=== PATIENT | female | born 1955 | race American Indian/Alaskan Native ===

== ENCOUNTER 2017-10-03 13:34 | Emergency (ER) | payer MEDICARE ==
[2017-10-03 14:50] LABS: BUN/Creatinine Ratio 16; Basophils # (Auto) 0.1 K/mm3 (0.0-0.1); Basophils % (Auto) 0.7 % (0.0-1.8); Blood Urea Nitrogen 18 mg/dL (7-17); Calcium 9.1 mg/dL (8.4-10.2); Eosinophils # (Auto) 0.2 K/mm3 (0.0-0.4); Eosinophils % (Auto) 2.5 % (0.0-4.3); Hematocrit 42.4 % (30.3-42.9); Hemoglobin 13.5 gm/dl (10.1-14.3); Hemolysis Index 7; Lymphocytes # (Auto) 3.7 K/mm3 (1.2-5.4); Lymphocytes % (Auto) 39.5 % (13.4-35.0); Mean Corpuscular HGB Conc 32 % (30-34); Mean Corpuscular Hemoglobin 30 pg (28-32); Mean Corpuscular Volume 94 fl (79-97); Monocytes # (Auto) 0.6 K/mm3 (0.0-0.8); Platelet Count 383 K/mm3 (140-440); Red Blood Count 4.52 M/mm3 (3.65-5.03); Red Cell Distribution Width 15.6 % (13.2-15.2)
[2017-10-03] MEDS ORDERED: TORADOL IM ONE (16:13)
--- NOTE | 2017-10-03 16:22 | Emergency Department Report ---
HPI - General Chief Complaint: Psych Time Seen by Provider: 10/03/17 15:57 - HPI HPI: 62-year-old female presents to the emergency department with complaint of multiple complaints. Patient says that she had a relapse of drugs and alcohol on Monday, 2 days ago, that included heroin, cocaine and alcohol. Since then, the patient says that she has been having some withdrawals. She mostly complains of some irritability. However also the patient says that she is sad regarding her relapse and this has brought on some suicidal ideations without any specific plan. She also has a history of bipolar disorder and schizophrenia and says that she's been having some nonspecific hallucinations last night as well. She tried some Klonopin for her withdrawals and says this is a medication that she has been prescribed by physician in [place]. Patient also complains of bilateral knee pain over the past 2 weeks with a history of osteoarthritis. She is requesting Toradol and prednisone. She does not have an orthopedist. ED Past Medical Hx - Past Medical History Hx Hypertension: Yes Hx Diabetes: Yes Hx Psychiatric Treatment: Yes (bipolar,schizophrenic,drug abuse,alcohol abuse) - Surgical History Additional Surgical History: R MASTECTOMY, HYST, R ANKLE, TONSILLECTOMY - Social History Smoking Status: Current Every Day Smoker Substance Use Type: Alcohol, Cocaine, Heroin, Other - Medications Home Medications: Home Medications Medication Instructions Recorded Confirmed Last Taken Type Ipratropium (Nf) [Atrovent HFA 2 puff IH Q6HR PRN 05/09/13 10/03/17 Unknown History 17MCG/PUFF] ALPRAZolam [Xanax TAB] 2 mg PO TID PRN 07/06/15 10/03/17 Unknown History Furosemide [Lasix TAB] 40 mg PO QDAY 07/06/15 10/03/17 Unknown History Ibuprofen [Motrin] 800 mg PO Q8HR PRN 07/06/15 10/03/17 Unknown History Pantoprazole [Protonix INJ] 40 mg PO QDAY 07/06/15 10/03/17 Unknown History Potassium Chloride 20 meq PO DAILY 07/06/15 10/03/17 Unknown History Simvastatin [Zocor TAB] 40 mg PO QHS 07/06/15 10/03/17 Unknown History Metoprolol [Lopressor TAB] 100 mg PO DAILY 07/07/15 10/03/17 Unknown History glipiZIDE 07/07/15 Unknown History ED Review of Systems ROS: Stated complaint: WITHDRAWS DRUGS Other details as noted in HPI Comment: All other systems reviewed and negative Constitutional: denies: chills, fever Eyes: denies: eye pain, eye discharge, vision change ENT: denies: ear pain, throat pain Respiratory: denies: cough, shortness of breath, wheezing Cardiovascular: denies: chest pain, palpitations Gastrointestinal: denies: abdominal pain, nausea, diarrhea Genitourinary: denies: urgency, dysuria, discharge Musculoskeletal: arthralgia. denies: joint swelling Skin: denies: rash, lesions Neurological: denies: headache, weakness, paresthesias Psychiatric: depression, auditory hallucinations, visual hallucinations, suicidal thoughts Physical Exam - Physical Exam Vital Signs: Vital Signs 10/03/17 10/03/17 13:42 15:30 Temperature 98 F Pulse Rate 65 89 Respiratory 18 16 Rate Blood Pressure 112/65 Blood Pressure 109/54 [Left] O2 Sat by Pulse 97 95 Oximetry Physical Exam: GENERAL: The patient is well-developed well-nourished. HENT: Normocephalic. Atraumatic. Patient has moist mucous membranes. EYES: Extraocular motions are intact. Pupils equal reactive to light bilaterally. NECK: Supple. Trachea is midline. CHEST/LUNGS: Clear to auscultation. There is no respiratory distress noted. HEART/CARDIOVASCULAR: Regular. There is no tachycardia. There is no murmur. ABDOMEN: Abdomen is soft, nontender. Patient has normal bowel sounds. Obese habitus. SKIN: Skin is warm and dry. NEURO: The patient is awake, alert, and oriented. The patient is cooperative. The patient has no focal neurologic deficits. The patient has normal speech and gait. MUSCULOSKELETAL: There is some tenderness in the patient to the bilateral knees but no obvious deformity.. There is no limitation range of motion. ED Course Vital Signs 10/03/17 10/03/17 13:42 15:30 Temperature 98 F Pulse Rate 65 89 Respiratory 18 16 Rate Blood Pressure 112/65 Blood Pressure 109/54 [Left] O2 Sat by Pulse 97 95 Oximetry ED Medical Decision Making - Lab Data Result diagrams: 10/03/17 14:15 10/03/17 14:15 - EKG Data -: EKG Interpreted by Me EKG shows normal: sinus rhythm, axis, intervals, QRS complexes (LVH, anterior Q waves), ST-T waves Rate: normal - EKG Data When compared to previous EKG there are: previous EKG unavailable Interpretation: other (sinus rhythm, LVH, anterior Q waves) - Radiology Data Radiology results: image reviewed interpreted by me: X-ray of the bilateral knees so some degenerative changes consistent with osteoarthritis. No fracture or dislocation. - Medical Decision Making Patient presents with some depression, suicidal ideations. She has a history of polysubstance abuse that she says she last used 2 or 3 days ago. UDS is currently positive for cocaine and benzodiazepines. Blood alcohol levels negative. The labs are mostly unremarkable. Vital signs stable throughout her ED course. X-ray of the knees shows some concerns for osteoarthritis but the patient already knows that she has a history of this. Otherwise the patient appears medically cleared and was made a 1013 secondary to the suicidal ideations. - Differential Diagnosis depression, bipolar disorder, schizophrenia, osteoarthritis, joint effusion Critical Care Time: No Critical care attestation.: If time is entered above; I have spent that time in minutes in the direct care of this critically ill patient, excluding procedure time. ED Disposition Clinical Impression: Suicidal ideations Depression Qualifiers: Depression Type: unspecified Qualified Code(s): F32.9 - Major depressive disorder, single episode, unspecified Disposition: DC/TX-65 PSY HOSP/PSY UNIT Is pt being admited?: No Condition: Stable Referrals: PRIMARY CARE [Primary Care Provider] - 3-5 Days Time of Disposition: 21:25
[2017-10-03 17:04] LABS: Bacteria,Urine 1+ /HPF (Negative); Bilirubin,Urine NEG (Negative); Blood,Urine NEG (Negative); Color,Urine Yellow (Yellow); Mucus,Urine FEW /HPF; Protein,Urine <15 mg/dL mg/dL (Negative); Urobilinogen,Urine < 2.0 mg/dL (<2.0)
[2017-10-03] MEDS ORDERED: K-DUR PO ONE (17:12)
[2017-10-03 17:13] LABS: Amphetamine Screen,Urine PRESUMPTIVE NEGATIVE; Cannabinoid Screen,Urine PRESUMPTIVE NEGATIVE; Methadone Screen,Urine PRESUMPTIVE NEGATIVE; Opiate Screen,Urine PRESUMPTIVE NEGATIVE
[2017-10-03 17:26] LABS: Benzodiazepines Screen,Urine PRESUMPTIVE POSITIVE; Cocaine Screen,Urine PRESUMPTIVE POSITIVE
--- NOTE | 2017-10-03 21:13 | XRay Report ---
FINAL REPORT PROCEDURE: XR KNEE BILAT 3V TECHNIQUE: Bilateral knee radiographs, AP, cross-table lateral and oblique views. HISTORY: knee pain COMPARISON: No prior studies are available for comparison. FINDINGS: There is [id number] degree narrowing of the medial tibiofemoral and patellofemoral compartments of bilateral knees right more than left. Marginal osteophyte formation is noted involving bilateral knee joints. An acute fracture is not identified. There is no obvious evidence of a joint effusion. IMPRESSION: Osteoarthritis bilateral knee joints
[2017-10-04] MEDS ORDERED: TYLENOL PO PRN (03:11)
[2017-10-04] MEDS ORDERED: NON-FORMULARY (Ipratropium (Nf) 2 PUFF) IH PRN (16:49)
[2017-10-04] MEDS ORDERED: LOPRESSOR PO SCH (17:00)
[2017-10-04] MEDS ORDERED: NON-FORMULARY (Glipizide 5 MG) PO SCH (17:00)
[2017-10-04] MEDS ORDERED: K-DUR PO SCH (17:00)
[2017-10-04] MEDS ORDERED: NON-FORMULARY (Potassium Chloride [Potassium Chloride] 20 MEQ) PO SCH (17:00)
[2017-10-04] MEDS ORDERED: LASIX PO SCH (17:00)
[2017-10-04] MEDS ORDERED: GLUCOTROL PO SCH (17:00)
[2017-10-04 17:24] VITALS: BP 162/89
[2017-10-04] MEDS ORDERED: PROVENTIL IH PRN (17:28)
[2017-10-04] MEDS ORDERED: LASIX ONE (18:02)
[2017-10-04] MEDS ORDERED: HABITROL TD ONE (19:00)
[2017-10-04] MEDS ORDERED: PRAVACHOL PO SCH (22:00)
[2017-10-04] MEDS ORDERED: NON-FORMULARY (Simvastatin 40 MG) PO SCH (22:00)
== END 2017-10-04 20:54 ==
LOC: EEVIPCON 13:34 → ED 13:34
DX: F31.9 Bipolar disorder, unspecified (principal); F20.9 Schizophrenia, unspecified; M25.562 Pain in left knee; M25.561 Pain in right knee; I10 Essential (primary) hypertension; E11.9 Type 2 diabetes mellitus without complications; F17.200 Nicotine dependence, unspecified, uncomplicated; F14.10 Cocaine abuse, uncomplicated; F11.10 Opioid abuse, uncomplicated
CPT/HCPCS: 36415; 73562; 80048; 80307; 81001; 82962; 85025; 93005; 93010; 96372; 99285; G0480; J1885; 80320; A9270-GY

== ENCOUNTER 2018-07-27 08:28 | Observation (INO) | payer MEDICARE ==
[2018-07-27] MEDS ORDERED: ASPIRIN PO ONE (09:04)
--- NOTE | 2018-07-27 09:37 | XRay Report ---
PORTABLE CHEST INDICATION: Chest pain. COMPARISON: None similar. FINDINGS: Portable, frontal chest radiograph demonstrates mild exaggerated cardiomediastinal silhouette/possible cardiomegaly and prominent bronchovascular markings, more so centrally. Slight peribronchial thickening. No dense focal consolidation, pleural effusions or CHF. EKG leads. Few bony degenerative changes. CONCLUSION: Slight cardiomegaly, perihilar congestion and minimal peribronchial thickening possible, as described. Please correlate. Thank you for the opportunity to participate in this patient's care.
[2018-07-27 10:27] LABS: Basophils # (Auto) 0.1 K/mm3 (0.0-0.1); Eosinophils # (Auto) 0.2 K/mm3 (0.0-0.4); Eosinophils % (Auto) 2.1 % (0.0-4.3); Hematocrit 36.7 % (30.3-42.9); Hemoglobin 11.8 gm/dl (10.1-14.3); Lymphocytes # (Auto) 1.7 K/mm3 (1.2-5.4); Lymphocytes % (Auto) 22.7 % (13.4-35.0); Mean Corpuscular HGB Conc 32 % (30-34); Mean Corpuscular Volume 90 fl (79-97); Monocytes # (Auto) 0.5 K/mm3 (0.0-0.8); Monocytes % (Auto) 6.7 % (0.0-7.3); Platelet Count 435 K/mm3 (140-440)
[2018-07-27 10:50] LABS: BUN/Creatinine Ratio 5; Blood Urea Nitrogen 4 mg/dL (7-17); Calcium 8.6 mg/dL (8.4-10.2); Hemolysis Index 4
--- NOTE | 2018-07-27 11:01 | Emergency Department Report ---
HPI - General Chief Complaint: Chest Pain Time Seen by Provider: 07/27/18 10:44 - HPI HPI: Room 3 Patient is 63-year-old female presented with a chief complaint of chest pain and bilateral lower extremity edema. The patient states 2-3 days ago she developed swelling in both lower extremities. Patient states morning she developed substernal chest pain that was sharp and intermittent in nature. The patient admits to associated shortness of breath, diaphoresis and nausea without vomiting or chest pain. Patient states she has been compliant with her Lasix. Of note the patient states she relapsed on cocaine 2 days ago. Location: Chest, bilateral lower extremities Duration: [See above] Quality: Sharp Severity: [See above] Modifying factors: [see above] Context: [see above] Mode of transportation: [not driving] ED Past Medical Hx - Past Medical History Previous Medical History?: Yes Hx Hypertension: Yes Hx Congestive Heart Failure: Yes Hx Diabetes: Yes Hx Pulmonary Embolism: Yes Hx of Cancer: Yes (right mastectomy) Hx Psychiatric Treatment: Yes (bipolar,schizophrenic,drug abuse,alcohol abuse) - Surgical History Past Surgical History?: Yes Additional Surgical History: R MASTECTOMY, HYST, R ANKLE, TONSILLECTOMY, L HAND - Family History Family history: no significant - Social History Smoking Status: Current Every Day Smoker (1/7 pack per day) Substance Use Type: Cocaine - Medications Home Medications: Home Medications Medication Instructions Recorded Confirmed Last Taken Type Ipratropium (Nf) [Atrovent HFA 2 puff IH Q6HR PRN 05/09/13 10/03/17 Unknown History 17MCG/PUFF] ALPRAZolam [Xanax TAB] 2 mg PO TID PRN 07/06/15 10/03/17 Unknown History Furosemide [Lasix TAB] 40 mg PO QDAY 07/06/15 10/03/17 Unknown History Ibuprofen [Motrin] 800 mg PO Q8HR PRN 07/06/15 10/03/17 Unknown History Pantoprazole [Protonix INJ] 40 mg PO QDAY 07/06/15 10/03/17 Unknown History Potassium Chloride 20 meq PO DAILY 07/06/15 10/03/17 Unknown History Simvastatin [Zocor TAB] 40 mg PO QHS 07/06/15 10/03/17 Unknown History Metoprolol [Lopressor TAB] 100 mg PO DAILY 07/07/15 10/03/17 Unknown History glipiZIDE 5 mg PO DAILY 07/07/15 10/03/17 Unknown History ED Review of Systems ROS: Stated complaint: CHEST PAIN Other details as noted in HPI Constitutional: diaphoresis Eyes: denies: eye pain ENT: denies: throat pain Respiratory: shortness of breath Cardiovascular: chest pain Endocrine: no symptoms reported Gastrointestinal: nausea. denies: vomiting Genitourinary: denies: dysuria Musculoskeletal: denies: back pain Neurological: denies: headache Physical Exam - Physical Exam Vital Signs: Vital Signs 07/27/18 07/27/18 08:58 09:04 Temperature 97.9 F Pulse Rate 105 H Respiratory 24 Rate Blood Pressure 144/84 O2 Sat by Pulse 96 96 Oximetry Physical Exam: GENERAL: The patient is well-developed well-nourished female lying on stretcher sleeping not appearing to be in acute distress. [] HEENT: Normocephalic. Atraumatic. Extraocular motions are intact. Patient has moist mucous membranes. NECK: Supple. Trachea midline CHEST/LUNGS: Clear to auscultation. There is no respiratory distress noted. HEART/CARDIOVASCULAR: Regular. There is no tachycardia. There is no gallop rub or murmur. ABDOMEN: Abdomen is soft, nontender. Patient has normal bowel sounds. There is no abdominal distention. SKIN: There is no rash. There is 2+ bilateral lower extremity pitting edema. There is no diaphoresis. NEURO: The patient is awake, alert, and oriented. The patient is cooperative. The patient has normal speech MUSCULOSKELETAL: There is no evidence of acute injury. ED Course Vital Signs 07/27/18 07/27/18 08:58 09:04 Temperature 97.9 F Pulse Rate 105 H Respiratory 24 Rate Blood Pressure 144/84 O2 Sat by Pulse 96 96 Oximetry ED Medical Decision Making - Lab Data Result diagrams: 07/27/18 10:12 07/27/18 10:12 Laboratory Tests 07/27/18 07/27/18 07/27/18 09:19 10:12 10:12 WBC 7.3 RBC 4.10 Hgb 11.8 Hct 36.7 MCV 90 MCH 29 MCHC 32 RDW 16.0 H Plt Count 435 Lymph % (Auto) 22.7 Maries % (Auto) 6.7 Eos % (Auto) 2.1 Baso % (Auto) 1.0 Lymph # 1.7 Maries # 0.5 Eos # 0.2 Baso # 0.1 Seg Neutrophils % 67.5 Seg Neutrophils # 4.9 Sodium 143 Potassium 3.7 Chloride 105.4 Carbon Dioxide 23 Anion Gap 18 BUN 4 L Creatinine 0.8 Estimated GFR > 60 BUN/Creatinine Ratio 5 Glucose 136 H POC Glucose 123 H Calcium 8.6 Troponin T < 0.010 - EKG Data -: EKG Interpreted by Me EKG shows normal: sinus rhythm Rate: normal - EKG Data When compared to previous EKG there are: previous EKG unavailable Interpretation: other (PVC. No ischemic changes seen) - Radiology Data Radiology results: report reviewed (chest x-ray), image reviewed (chest x-ray) interpreted by me: Chest x-ray-no focal infiltrate, no pneumothorax. Cardiomegaly - Differential Diagnosis ACS, Prinzmetal, pericarditis, GERD, CHF exacerbation Critical care attestation.: If time is entered above; I have spent that time in minutes in the direct care of this critically ill patient, excluding procedure time. ED Disposition Clinical Impression: Chest pain, CHF exacerbation Disposition: -09 OP ADMIT IP TO THIS HOSP Is pt being admited?: Yes Does the pt Need Aspirin: Yes Condition: Fair Instructions: Chest Pain (ED) Referrals: ZARA GERONIMO MD [Primary Care Provider] - 3-5 Days Time of Disposition: 11:03 (hospitalist paged (Dr Geronimo))
[2018-07-27] MEDS ORDERED: NITRO-BID 2% TP ONE ×2 (11:05→12:54)
[2018-07-27] MEDS ORDERED: LASIX IV ONE (11:05)
[2018-07-27] MEDS ORDERED: LASIX ONE (12:54)
[2018-07-27] MEDS ORDERED: ZOFRAN IV ONE (13:07)
[2018-07-27] MEDS ORDERED: SUBLIMAZE IV ONE (13:07)
[2018-07-27] MEDS ORDERED: ZOFRAN ONE (13:15)
[2018-07-27] MEDS: PROTONIX PO SCH (17:53)
[2018-07-27] MEDS: PERCOCET 5/325 PO PRN (17:53)
[2018-07-27] MEDS ORDERED: ZOFRAN IV PRN ×2 (19:28→22:22)
[2018-07-27] MEDS ORDERED: PROVENTIL IH PRN (22:20)
[2018-07-27] MEDS ORDERED: AMBIEN PO PRN (22:20)
[2018-07-27] MEDS ORDERED: PHENERGAN PO PRN (22:20)
[2018-07-27] MEDS ORDERED: SODIUM CHLORIDE FLUSH SYRINGE 10 ML IV PRN (22:22)
[2018-07-27] MEDS ORDERED: MORPHINE IV PRN (22:22)
[2018-07-27] MEDS ORDERED: TYLENOL PO PRN (22:22)
[2018-07-27] MEDS ORDERED: IBUPROFEN PO PRN (22:22)
--- NOTE | 2018-07-27 22:24 | Event Note ---
Date: 07/27/18 See dictated H/p in reports Chest pain -r/o CO HTN HLD PN Asthma Depression Hypothyroidism Bipoar disorder Coacaine abuse
[2018-07-27] MEDS: FLEXERIL PO SCH (23:13)
[2018-07-27] MEDS: NEURONTIN PO SCH ×2 (23:13→23:16)
[2018-07-28] MEDS: PERCOCET 5/325 PO PRN ×3 (03:27→18:17)
--- NOTE | 2018-07-28 04:15 | History and Physical Report ---
CHIEF COMPLAINT: Left-sided chest pain for 3 days. HISTORY OF PRESENT ILLNESS: A 63-year-old -[place] female with multiple medical problems including hypertension, hyperlipidemia, peripheral neuropathy, asthma, depression, hypothyroidism, bipolar disorder, and cocaine dependence, comes in for left-sided chest pain for 2 days, intermittent in nature. No diaphoresis. No palpitations. No shortness of breath. The patient also has severe swelling of both the lower extremities. No orthopnea. No exacerbating or precipitating factors. No radiation of the chest pain. Chest pain is dull and about 7 on a scale of 1-10, intermittent in nature. PAST MEDICAL HISTORY: Significant for hypertension, congestive heart failure, diabetes, pulmonary embolism, right mastectomy, bipolar disorder, schizophrenia, cocaine use and alcohol use. PAST SURGICAL HISTORY: Right mastectomy, right ankle surgery, tonsillectomy, left hand surgery, and hysterectomy. FAMILY HISTORY: Hypertension. SOCIAL HISTORY: Smokes over half a pack a day. Cocaine use intermittent basis. FAMILY HISTORY: Hypertension. CURRENT MEDICATIONS: On the chart. REVIEW OF SYSTEMS: Significant for left-sided chest pain with no radiation. Also, some occasional wheezing present. Review of systems is otherwise negative. PHYSICAL EXAMINATION: GENERAL: Elderly female, cooperative during examination, obese. VITAL SIGNS: Blood pressure is 153/72, temperature is 97.9, pulse is 109, respirations are 18. HEENT: Unremarkable. Pupils are equal and reactive. NECK: Supple, no lymphadenopathy, no thyromegaly. LUNGS: Clear to auscultation and percussion. Good air entry. CARDIOVASCULAR: S1, S2, heard. No gallop, no murmur, no rub. Apical impulse in left fifth intercostal space and midclavicular line. ABDOMEN: Soft and benign. No hepatosplenomegaly. No guarding, no rigidity. Hernial orifices are normal. EXTREMITIES: Bilateral 3+ pedal edema present. CENTRAL NERVOUS SYSTEM: Alert and oriented x 4, nonfocal exam. LABORATORY DATA: Significant for white count of 7300, H and H is 11.8 and 36.7, platelet count is 435,000. Electrolytes are normal. BUN and creatinine is 4 and 0.8, glucose is 123, and A1c is 7.1. Calcium is 8.6. EKG normal sinus rhythm, no acute ST-T wave changes. Chest x-ray, slight cardiomegaly with perihilar congestion and minimal peribronchial thickening. Troponins are negative. ASSESSMENT AND PLAN: 1. Chest pain, rule out myocardial infarction, chest pain protocol. Cocaine may have precipitated. The patient counseled about cocaine use. The patient to get Lexiscan and serial troponins. 2. Bilateral lower extremity edema. Lasix ordered. Also, bilateral venous duplex scan to be done to rule out deep venous thrombosis. 3. Hypertension. Continue antihypertensives. 4. Hypothyroidism. Continue Synthroid. Check TSH. 5. Hyperlipidemia. Continue statins. 6. Peripheral neuropathy. Continue gabapentin. 7. Asthma. Continue Symbicort. 8. Depression. Continue antidepressants. 9. Cocaine use. The patient counseled. 10. Deep venous thrombosis prophylaxis. Lovenox 30 mg subcutaneous daily. 11. Gastrointestinal prophylaxis. JOB# [id number] VSM/NTS
[2018-07-28] MEDS: K-DUR PO SCH ×2 (04:51→11:00)
[2018-07-28] MEDS ORDERED: SYNTHROID PO SCH (06:00)
[2018-07-28 06:04] LABS: Basophils % (Auto) 0.6 % (0.0-1.8); Eosinophils # (Auto) 0.2 K/mm3 (0.0-0.4); Eosinophils % (Auto) 3.6 % (0.0-4.3); Hematocrit 36.5 % (30.3-42.9); Hemoglobin 11.6 gm/dl (10.1-14.3); Lymphocytes # (Auto) 2.2 K/mm3 (1.2-5.4); Lymphocytes % (Auto) 33.8 % (13.4-35.0); Mean Corpuscular HGB Conc 32 % (30-34); Mean Corpuscular Volume 89 fl (79-97); Monocytes # (Auto) 0.6 K/mm3 (0.0-0.8); Monocytes % (Auto) 8.8 % (0.0-7.3); Platelet Count 400 K/mm3 (140-440); Red Blood Count 4.09 M/mm3 (3.65-5.03); Red Cell Distribution Width 15.7 % (13.2-15.2)
[2018-07-28] MEDS: LASIX IV SCH ×2 (06:07→18:07)
[2018-07-28 06:37] LABS: Alanine Aminotransferase 7 units/L (7-56); Albumin 3.1 g/dL (3.9-5); BUN/Creatinine Ratio 4; Blood Urea Nitrogen 4 mg/dL (7-17); Calcium 9.1 mg/dL (8.4-10.2); Hemolysis Index 10
[2018-07-28] MEDS: HumaLOG SUB-Q SCH ×3 (08:21→17:35)
[2018-07-28] MEDS ORDERED: LEXISCAN IV ONE (09:00)
[2018-07-28] MEDS ORDERED: LOPRESSOR PO SCH (10:00)
[2018-07-28] MEDS ORDERED: NON-FORMULARY (Duloxetine Hcl [Cymbalta] 60 MG) PO SCH (10:00)
[2018-07-28] MEDS ORDERED: CYMBALTA PO SCH (10:00)
[2018-07-28] MEDS ORDERED: SODIUM CHLORIDE FLUSH SYRINGE 10 ML IV SCH (10:00)
[2018-07-28] MEDS ORDERED: PEPCID PO SCH (10:00)
[2018-07-28] MEDS ORDERED: XARELTO PO SCH (10:00)
[2018-07-28] MEDS: FLEXERIL PO SCH (10:58)
[2018-07-28] MEDS: PROTONIX PO SCH (10:59)
--- NOTE | 2018-07-28 15:09 | Vascular Lab Report ---
PROCEDURE: VL VENOUS DUPLEX LE BILAT TECHNIQUE: Duplex Doppler sonography of the BILATERAL lower extremities. Gonzalez scale imaging with and without compression, spectral waveform analysis with and without augmentation, and color flow Dopple r were employed. HISTORY: Lower extremity swelling COMPARISONS: None FINDINGS: RIGHT lower EXTREMITY: Deep Venous Thrombus: None Superficial Venous Thrombus: None Venous valvular incompetence: None Soft tissue abnormality: Mildly complex 3 x 1.5 cm fluid collection in the popliteal fossa with inte rnal echogenicities. LEFT lower EXTREMITY: Deep Venous Thrombus: None Superficial Venous Thrombus: None Venous valvular incompetence: None Soft tissue abnormality: None IMPRESSION: No evidence of deep venous thrombosis. Mildly complex right John's cyst. This document is electronically signed by Court Fu MD., Jul 28 2018 03:07:29 PM ET
--- NOTE | 2018-07-28 15:48 | Discharge Summary ---
Providers - Providers Date of Admission: 07/27/18 11:06 Date of discharge: 07/28/18 Attending physician: BANDAR CUMMINGS Primary care physician: ZARA GERONIMO Hospitalization Condition: Fair Hospital course: Patient is 63 yo presented with chest pain. She was seen and evaluated in ED. Initial Troponin was normal. patient was admitted to rule out acute coronary syndrome. Stress test done next day was normal so was discharged home. Chest pin is non cardiac due to GERD Disposition: DC-01 TO HOME OR SELFCARE - Discharge Diagnoses (1) Chest pain Status: Acute (2) GERD (gastroesophageal reflux disease) Status: Acute (3) HTN (hypertension) Status: Acute (4) Diabetes Status: Acute Core Measure Documentation - Palliative Care Palliative Care/ Comfort Measures: Not Applicable - Core Measures Any of the following diagnoses?: none Exam - Constitutional Vitals: Temp Pulse Resp BP Pulse Ox 98.4 F 104 H 19 136/83 93 07/28/18 11:44 07/28/18 10:58 07/28/18 10:00 07/28/18 10:58 07/28/18 10:56 Plan Activity: advance as tolerated Diet: low fat, low cholesterol, low salt Additional Instructions: 1.Follow up with Dr. Geronimo in 3-5 days. Follow up with: ZARA GERONIMO MD [Primary Care Provider] - 3-5 Days Prescriptions: Furosemide [Lasix TAB] 40 mg PO QDAY #7 tablet
--- NOTE | 2018-07-28 16:25 | Treadmill Report ---
NUCLEAR PERFUSION SCAN REFERRING PHYSICIAN: Hospitalist service. PROTOCOL: The patient was brought to the stress lab in postabsorptive state, given 10 mCi of technetium 99m at rest. The patient underwent rest imaging. The patient underwent Lexiscan stress test. At peak stress, the patient was given 30 mCi of technetium 99m. The patient underwent stress imaging. INTERPRETATION: Technically somewhat difficult study due to body habitus, but grossly no evidence of significant fixed or reversible defect consistent with prior infarction or active ischemia. Gated wall motion reveals moderate global left ventricular akinesis with a calculated ejection fraction of 42%. CONCLUSIONS: 1. Technically difficult study, but grossly probably normal without evidence of significant degree of ischemia or prior infarction. 2. Moderate global left ventricular hypokinesis with calculated ejection fraction 42%. JOB# [id number] JOE/HANNA
[2018-07-28 19:40] VITALS: BP 121/70
[2018-07-28] MEDS ORDERED: LOVENOX SUB-Q SCH (22:00)
== END 2018-07-28 19:48 | disposition home or self-care (01) ==
LOC: ED 08:28 → 4A 11:06
PROVIDERS: ADMIT Internal Medicine; ATTEND Internal Medicine
DX: R07.89 Other chest pain (principal); I50.9 Heart failure, unspecified; F14.10 Cocaine abuse, uncomplicated; R60.0 Localized edema; E03.9 Hypothyroidism, unspecified; E78.5 Hyperlipidemia, unspecified; J45.909 Unspecified asthma, uncomplicated; E11.42 Type 2 diabetes mellitus with diabetic polyneuropathy; I11.0 Hypertensive heart disease with heart failure; I26.99 Other pulmonary embolism without acute cor pulmonale; F31.9 Bipolar disorder, unspecified; F20.9 Schizophrenia, unspecified; F17.210 Nicotine dependence, cigarettes, uncomplicated; Z90.12 Acquired absence of left breast and nipple; Z82.49 Family history of ischemic heart disease and other diseases of the circulatory system; Z90.89 Acquired absence of other organs; Z90.710 Acquired absence of both cervix and uterus; Z98.890 Other specified postprocedural states
CPT/HCPCS: 36415; 71045; 78452; 80048; 80053; 82962; 83036; 83880; 84439; 84443; 84484; 85025; 93005; 93010; 93017; 93970; 96374; 96375; 96376; 99284; 99406; A9270; A9502; G0378; J1940; J2405; J2785; J3010